=== PATIENT | male | born 1995 | race Caucasian/White ===

== ENCOUNTER 2025-09-21 11:11 | Outpatient (CLI) | payer OTHER, SELFPAY | END 2025-09-21 11:12 | disposition home or self-care (01) | PROVIDERS: PCP Family Medicine; Visit Provider Family Medicine | DX: Z13.9 Encounter for screening, unspecified (principal); Z13.6 Encounter for screening for cardiovascular disorders | CPT/HCPCS: 80048; 80061; 84460; 85025 ==